=== PATIENT | female | born 1995 | race Caucasian/White ===

== ENCOUNTER 2020-10-02 00:54 | Inpatient (IN) | payer OTHER ==
[~2020-10-02] VITALS: Ht 160 cm; Wt 78.5 kg
[2020-10-02 01:54] LABS: HEMOGLOBIN 13.8 gm/dl (12.3-15.3); RED BLOOD COUNT 4.79 M/UL (4.00-5.10); WHITE BLOOD COUNT 17.5 K/UL (4.5-11.0)
[2020-10-02] MEDS ORDERED: BUPRENORPHIN-N1 EACH SL (04:51)
[2020-10-02] MEDS ORDERED: IBUPROFEN600 MG PO (07:44)
[2020-10-02] MEDS ORDERED: OXYCODONE HCL10 MG PO (07:44)
[2020-10-02] MEDS ORDERED: COLACE 100MG C100 MG PO (07:44)
[2020-10-03] MEDS ORDERED: IBUPROFEN600 MG PO (15:18)
[2020-10-03] MEDS ORDERED: OXYCODONE HCL5 MG PO (15:18)
[2020-10-03] MEDS ORDERED: DOCUSATE SODIU250 MG PO (15:18)
== END 2020-10-03 16:13 | disposition home or self-care (01) | DRG 787 ==
LOC: GENOP 00:54 → OB 01:37
PROVIDERS: ADMIT Obstetrics & Gynecology
PROC: 10D00Z1 Extraction of Products of Conception, Low, Open Approach (ICD-10-PCS; 2020-10-02)
PROC: 4A1HX4Z Monitoring of Products of Conception, Cardiac Electrical Activity, External Approach (ICD-10-PCS; principal; 2020-10-02 07:55)
DX: O99.334 Smoking (tobacco) complicating childbirth (principal); F11.20 Opioid dependence, uncomplicated; F17.200 Nicotine dependence, unspecified, uncomplicated; Z3A.41 41 weeks gestation of pregnancy; Z37.0 Single live birth; O76 Abnormality in fetal heart rate and rhythm complicating labor and delivery; Z20.822 Contact with and (suspected) exposure to COVID-19; O99.324 Drug use complicating childbirth; F41.9 Anxiety disorder, unspecified
CPT/HCPCS: 36415; 80307; 81001; 82800; 85014; 85018; 85025; 86900; 86901; 87635; C9113; J0690; J1885; J2270; J2274; J2405; J2590; J3010; J7120

== ENCOUNTER 2021-04-24 03:09 | Emergency (ER) | payer OTHER ==
[~2021-04-24 03:09] MED LIST: BUPRENORPHIN-N1 EACH SL; COLACE 100MG C100 MG PO; DOCUSATE SODIU250 MG PO; IBUPROFEN600 MG PO; OXYCODONE HCL10 MG PO; OXYCODONE HCL5 MG PO
[2021-04-24 03:52] LABS: HEMOGLOBIN 10.9 gm/dl (12.3-15.3); RED BLOOD COUNT 4.03 M/UL (4.00-5.10); WHITE BLOOD COUNT 9.5 K/UL (4.5-11.0)
[2021-04-24 03:58] LABS: BUN/CREATININE RATIO 20 (0-10)
[2021-04-24] MEDS ORDERED: CITRATE OF MAG296 ML PO (07:31)
[2021-04-24] MEDS ORDERED: CEPHALEXIN500 M1 PO (07:31)
== END 2021-04-24 07:55 | disposition home or self-care (01) ==
LOC: ER1 03:09
PROVIDERS: Emergency Medicine
DX: N30.90 Cystitis, unspecified without hematuria (principal); K59.00 Constipation, unspecified; R16.2 Hepatomegaly with splenomegaly, not elsewhere classified; D27.0 Benign neoplasm of right ovary; F17.200 Nicotine dependence, unspecified, uncomplicated
CPT/HCPCS: 80053; 81001; 83690; 84703; 85025; 96374; 96375; 99284; J0696; J2270; J2405; Q9967